=== PATIENT | female | born 1990 | race Caucasian/White ===

== ENCOUNTER 2017-10-04 07:12 | Day surgery (SDC) | payer OTHER ==
[~2017-10-04] VITALS: Ht 162.6 cm; Wt 90.7 kg
[2017-10-04] MEDS ORDERED: SYN.1 PO (07:57)
[2017-10-04] MEDS ORDERED: VITD1000 PO (07:57)
[2017-10-04] MEDS ORDERED: LIDOCAINE 2% 1000 MG/50 ML VIAL INJ ONE (08:15)
[2017-10-04] MEDS ORDERED: fentaNYL 0.05 MG/ML VIAL ONE (09:22)
[2017-10-04] MEDS ORDERED: MIDAZOLAM 2 MG/2 ML VIAL ONE (09:44)
[2017-10-04] MEDS ORDERED: MIDAZOLAM 2 MG/2 ML VIAL IVP ONE (10:10)
[2017-10-04] MEDS ORDERED: fentaNYL 0.05 MG/ML VIAL IM ONE (10:10)
[2017-10-04] MEDS ORDERED: fentaNYL 0.05 MG/ML VIAL IVP ONE (10:10)
[2017-10-04] MEDS: fentaNYL 0.05 MG/ML VIAL IVP PRN ×3 (10:22→10:52)
== END 2017-10-04 11:31 | disposition home or self-care (01) ==
LOC: MDS 07:12 → MMU 07:21 → MDS 11:31
PROVIDERS: ATTEND Internal Medicine Gastroenterology
DX: B19.20 Unspecified viral hepatitis C without hepatic coma (principal); E03.9 Hypothyroidism, unspecified; Z79.899 Other long term (current) drug therapy; Z68.33 Body mass index [BMI] 33.0-33.9, adult; E66.9 Obesity, unspecified
CPT/HCPCS: 47000; 76942; J2001; J2250; J3010; Q0092